=== PATIENT | male | born 2000 | race African-American/Black ===

== ENCOUNTER 2023-11-07 22:31 | Emergency (ER) | payer SELFPAY ==
[~2023-11-07] VITALS: Ht 172.7 cm; Wt 85.0 kg
[2023-11-07 22:41] VITALS: BP 122/81; PULSE 74; RESP 18; TEMP 98.1; O2SAT 100
[2023-11-07] MEDS ORDERED: BACITRACIN ZINC OINT UDPKT TOP ONE (23:15)
[2023-11-07] MEDS ORDERED: IBUPROFEN 800MG TABLET PO ONE (23:15)
[2023-11-08] MEDS ORDERED: IBUPROFEN 400MG TABLET PO NR (00:15)
== END 2023-11-07 23:54 | disposition home or self-care (01) ==
LOC: ER 22:31
DX: S80.211A Abrasion, right knee, initial encounter (principal); V98.8XXA Other specified transport accidents, initial encounter; Y93.89 Activity, other specified; Y92.89 Other specified places as the place of occurrence of the external cause; Y99.8 Other external cause status
CPT/HCPCS: 99283

== ENCOUNTER 2024-07-03 10:30 | Emergency (ER) | payer MEDICAID ==
[~2024-07-03] VITALS: Ht 170.2 cm; Wt 91.0 kg
[2024-07-03 10:39] VITALS: BP 128/66; PULSE 99; RESP 16; TEMP 97.8; O2SAT 99
[2024-07-03] MEDS ORDERED: IBUP-2029 MT (12:26)
== END 2024-07-03 14:10 | disposition home or self-care (01) ==
LOC: ER 10:30
DX: S93.402A Sprain of unspecified ligament of left ankle, initial encounter (principal); S93.602A Unspecified sprain of left foot, initial encounter; Z98.890 Other specified postprocedural states; X58.XXXA Exposure to other specified factors, initial encounter; Y93.89 Activity, other specified; Y92.89 Other specified places as the place of occurrence of the external cause; Y99.8 Other external cause status
CPT/HCPCS: 73600; 73620; 99284